=== PATIENT | female | born 1980 | race Caucasian/White ===

== ENCOUNTER 2019-01-21 20:23 | Emergency (ER) | payer SELFPAY ==
[~2019-01-21] VITALS: Ht 175.3 cm; Wt 86.2 kg
[2019-01-21 20:30] VITALS: BP 117/77
--- NOTE | 2019-01-21 20:30 | NUR ---
TO BED # 07 VIA WHEELCHAIR
[2019-01-21] MEDS ORDERED: LORazepam 2 MG/ML VIAL IM ONE (20:50)
--- NOTE | 2019-01-21 21:13 | NUR ---
PATIENT PRESENTS TO ED WITH C/O TINGLING TO ARM WHILE PRAYING. PATIENT STATES "I SON JUST , AND LATELY I HAVE BEEN UNDER ALOT OF STRESS" . PATIENT DENIES N/V/D; SKIN IS PINK/WARM/DRY; AAOX4 WITH EVEN AND STEADY GAIT; LUNGS CLEAR BL; HR EVEN AND REGULAR; PT DENIES ANY FEVER, CP, SOB, OR COUGH AT THIS TIME; PATIENT STATES PAIN OF 10/10 AT THIS TIME; VSS; PATIENT POSITIONED FOR COMFORT; HOB ELEVATED; BEDRAILS UP X2; BED DOWN. ER MD MADE AWARE OF PT STATUS.
--- NOTE | 2019-01-21 21:30 | NUR ---
Patient discharged with v/s stable. Written and verbal after care instructions given and explained. Patient alert, oriented and verbalized understanding of instructions. Ambulatory with to car. All questions addressed prior to discharge. ID band removed. Patient advised to follow up with PMD. Rx of ATIVAN given. Patient educated on indication of medication including possible reaction and side effects. Opportunity to ask questions provided and answered.Patient Son at bedside who will be driving patient home.
[2019-01-21 21:31] VITALS: BP 120/80
== END 2019-01-21 21:31 | disposition home or self-care (01) ==
LOC: MED 20:23
DX: F41.9 Anxiety disorder, unspecified (principal); F43.20 Adjustment disorder, unspecified
CPT/HCPCS: 96372; 99283; J2060